=== PATIENT | male | born 1975 | race Caucasian/White ===

== ENCOUNTER 2016-11-18 11:15 | Emergency (ER) | payer OTHER ==
[~2016-11-18] VITALS: Wt 90.9 kg
[2016-11-18] MEDS ORDERED: IBUPROFEN 800 MG TAB PO ONE (12:00)
--- NOTE | 2016-11-18 13:41 | ERD ---
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 Patient states that he was doing some underground cable when a "huge heavy wheel " landed on top of his arm. States he has pain with movement. Denies any previous trauma. States he is not taking any medication for the pain. Denies any fevers or chills. ROS All systems reviewed and are negative except as per history of present illness. Medications Home Meds Active Scripts Naproxen* (Naprosyn*) 500 Mg Tablet, 500 MG PO BID Y for PAIN AND/OR INFLAMMATION, #30 TAB Prov:AVINASH WHITFIELD PA-C 11/18/16 Physical Exam Vitals Vital Signs Date Time Temp Pulse Resp B/P Pulse Ox O2 Delivery O2 Flow Rate FiO2 11/18/16 11:26 98.0 90 20 143/89 97 Physical Exam Const: NAD Head: Atraumatic Eyes: Normal Conjunctiva ENT: Normal External Ears, Nose and Mouth. Neck: Full range of motion..~ No meningismus. Resp: Clear to auscultation bilaterally Cardio: Regular rate and rhythm, no murmurs Abd: Soft, non tender, non distended. Normal bowel sounds Skin: abrasion left elbow MSK: left arm with No obvious deformity. No effusion. No ecchymosis. Unable to assess range of motion secondary to pain along elbow and forearm. Full active range of motion of wrist. Nontender to palpation shoulder. Pulses 2+. Good cap refill. Distal neurovascularly intact. Neur: Awake and alert Psych: Normal Mood and Affect Results 24 hrs Current Medications Medications (Trade) Dose Ordered Sig/Arik Route PRN Reason Start Time Stop Time Status Last Admin Dose Admin Ibuprofen (Motrin) 800 mg ONCE ONCE PO 11/18/16 12:00 11/18/16 12:02 DC 11/18/16 12:00 DIAGNOSTIC IMAGING REPORT Patient: TAYLOR BRAUN : 1975 Age: 41 Sex: M MR #: [id number] DOS: 11/18/16 0000 Ordering MD: AVINASH WHITFIELD PA-C Location: [facility] Room/Bed: PROCEDURE: XR Elbow. CLINICAL INDICATION: Trauma, left elbow pain TECHNIQUE: AP, lateral and oblique views of the left elbow performed. COMPARISON: Radiographs of the left forearm same day FINDINGS: There is no radiographic evidence of acute fracture or dislocation. There is no significant joint effusion. The joint spaces are preserved. There is mild posterior soft tissue swelling over the olecranon. IMPRESSION: 1. No radiographic evidence of acute osseous abnormality or significant joint effusion. 2. Mild posterior soft tissue swelling over the olecranon. RPTAT: UU .Gordo Asencio MD, Date Time Electronically viewed and signed by .Gordo Asencio MD, on 11/18/2016 13: 48 .K/ CC: AVINASH WHITFIELD PA-C DIAGNOSTIC IMAGING REPORT Patient: TAYLOR BRAUN : 1975 Age: 41 Sex: M MR #: [id number] DOS: 11/18/16 0000 Ordering MD: AVINASH WHITFIELD PA-C Location: [facility] Room/Bed: PROCEDURE: XR Forearm. CLINICAL INDICATION: Left forearm pain TECHNIQUE: 2 views of the left forearm were obtained. COMPARISON: No prior studies are available for comparison. FINDINGS: Small well corticated ossicle at the tip of the ulnar styloid is likely from a remote trauma. There is mild dorsal soft tissue swelling of the forearm. There is no evidence of acute osseous abnormality. IMPRESSION: 1. Remote ununited ulnar styloid fracture. No radiographic evidence of acute osseous abnormality. 2. Dorsal soft tissue swelling of the forearm. RPTAT: UU .Gordo Asencio MD, Date Time Electronically viewed and signed by .Gordo Asencio MD, on 11/18/2016 13: 49 .K/ CC: AVINASH WHITFIELD PA-C Procedures/MDM This is a 41-year-old male who presents the emergency department today complaining of left arm pain after sustaining an injury while at work today. Given the patient's trauma I did obtain images. Per the radiology report images of the left elbow show no radiographic evidence of acute fracture dislocation. There is no significant joint effusion. The joint spaces are preserved. There is mild posterior soft tissue swelling over the olecranon. Images of the forearm show a very remote small well-corticated ossicle at the tip of the ulnar styloid likely from a remote trauma. There is mild dorsal soft tissue swelling of the forearm. There is no evidence of acute osseous abnormality. At this time there is no Evidence to suggest an acute fracture dislocation. Patient symptoms at this time is consistent with sprain versus strain versus contusion.I do not see evidence of compartment syndrome at this time. Patient declined narcotics here in the emergency department as he states that he regularly gets drug tested for his job. Patient was given Motrin. Patient did endorse later that he does take Vicodin regularly for back pain. I instructed patient that he may continue to take that but he would need to get refills from his primary care doctor. 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 Patient was given a sling for comfort. I did fill out his workers comp paperwork and instructed him that he would need to get cleared by his primary care doctor senior medical billing specialist. Patient understood. At this time the patient is stable for discharge and outpatient management. Patient should follow up with their PCP in the next 1-2 days. They may return to the emergency department sooner for any persistent or worsening of symptoms. Patient understood and agreed with the plan. Departure Diagnosis: Primary Impression: Injury of upper extremity Encounter type: initial encounter Laterality: left Qualified Code: S49.92XA - Injury of left upper extremity, initial encounter Condition: Fair Referrals: your pCP AVINASH WHITFIELD PA-C Nov 18, 2016 13:40
--- NOTE | 2016-11-18 13:48 | RADRPT ---
PROCEDURE: XR Elbow. CLINICAL INDICATION: Trauma, left elbow pain TECHNIQUE: AP, lateral and oblique views of the left elbow performed. COMPARISON: Radiographs of the left forearm same day FINDINGS: There is no radiographic evidence of acute fracture or dislocation. There is no significant joint e ffusion. The joint spaces are preserved. There is mild posterior soft tissue swelling over the ole cranon. IMPRESSION: 1. No radiographic evidence of acute osseous abnormality or significant joint effusion. 2. Mild posterior soft tissue swelling over the olecranon. RPTAT: UU .Gordo Asencio MD, MD Date Time Electronically viewed and signed by .Gordo Asencio MD, on 11/18/2016 13:48 .K/
--- NOTE | 2016-11-18 13:49 | RADRPT ---
PROCEDURE: XR Forearm. CLINICAL INDICATION: Left forearm pain TECHNIQUE: 2 views of the left forearm were obtained. COMPARISON: No prior studies are available for comparison. FINDINGS: Small well corticated ossicle at the tip of the ulnar styloid is likely from a remote trauma. There is mild dorsal soft tissue swelling of the forearm. There is no evidence of acute osseous abnormal ity. IMPRESSION: 1. Remote ununited ulnar styloid fracture. No radiographic evidence of acute osseous abnormality. 2. Dorsal soft tissue swelling of the forearm. RPTAT: UU .Gordo Asencio MD, MD Date Time Electronically viewed and signed by .Gordo Asencio MD, on 11/18/2016 13:49 .K/
[2016-11-18] MEDS ORDERED: NAPR-260 PO (14:18)
[2016-11-18 15:36] VITALS: BP 137/80; PULSE 89; RESP 18; TEMP 98.1
== END 2016-11-18 15:37 | disposition home or self-care (01) ==
LOC: FTE 11:15
DX: S49.92XA Unspecified injury of left shoulder and upper arm, initial encounter (principal); W20.8XXA Other cause of strike by thrown, projected or falling object, initial encounter; Y92.9 Unspecified place or not applicable
CPT/HCPCS: 73090